=== PATIENT | female | born 1945 | race Caucasian/White ===

== ENCOUNTER 2025-09-05 18:04 | Inpatient (IN) | payer MEDICARE, SELFPAY ==
[2025-09-05] VITALS (12 sets, daily range): BP systolic 143–206; BP diastolic 67–101; PULSE 54–68; RESP 16–35; O2SAT 96–99; BMI 23.0
--- NOTE | 2025-09-05 18:07 | DI.CT.S_ITS ---
PROCEDURE: CT STROKE INDICATIONS: Positive BE-FAST, Stroke symptoms TECHNIQUE: Noncontrast 4.5 mm thick angled axial sections acquired from the foramen magnum to the vertex, with coronal reformats. For radiation dose reduction, the following was used: automated exposure control, adjustment of mA and/or kV according to patient size. COMPARISON: None. FINDINGS: Image quality: Diagnostic. CSF spaces: Basal cisterns are patent. No extra-axial fluid collections. The ventricles are symmetric in size and shape. Brain: No intracranial bleeds or mass effect. There is cerebral volume loss, with resultant ventricular and sulcal prominence. There are periventricular and deep white matter chronic small vessel ischemic changes. There is intracranial internal carotid artery atherosclerosis. Skull and face: Calvarium and visualized facial bones appear intact, without suspicious lesions. Sinuses: Visualized sinuses and mastoids are clear. IMPRESSION: 1. No acute intracranial process. 2. Moderate atrophy and chronic microvascular ischemic changes. The above findings were discussed with Dr. Ava Tran 09/05/2025 at 6:23 p.m. This study fulfills neurological imaging criteria for inclusion or exclusion of acute stroke therapies based on available published neurological guidelines. Dictated by: Carol Sellers M.D. on 09/05/2025 at 18:23 Approved by: Carol Sellers M.D. on 09/05/2025 at 18:24
--- NOTE | 2025-09-05 18:07 | DI.RAD.S_ITS ---
PROCEDURE: XR CHEST 1V INDICATIONS: Possible stroke TECHNIQUE: One view of the chest was acquired. COMPARISON: None. FINDINGS: Surgical changes and devices: None. Lungs and pleura: No focal consolidation.. No pleural effusions or pneumothorax. Mediastinum: Cardiomegaly. Mild perihilar haze. Bones and chest wall: No suspicious bony lesions. Overlying soft tissues appear unremarkable. IMPRESSION: Cardiomegaly with possible early pulmonary edema. Dictated by: Sarabjit Salas M.D. on 09/05/2025 at 18:33 Approved by: Sarabjit Salas M.D. on 09/05/2025 at 18:34
--- NOTE | 2025-09-05 18:07 | DI.CT.S_ITS ---
PROCEDURE: CT ANGIO HEAD AND NECK INDICATIONS: Sudden onset aphasia TECHNIQUE: After the administration of intravenous contrast, 1 mm thick sections acquired from the aortic arch through the [place] of [place]. 3-dimensional etejece-tbtmkftuh-qpgzbtmlrq (MIP) and/or volume rendering reformats were acquired of the central intracranial vasculature and neck separately. For radiation dose reduction, the following was used: automated exposure control, adjustment of mA and/or kV according to patient size. COMPARISON: [facility], CT, CT STROKE, 09/05/2025, 18:16. FINDINGS: Image quality: Diagnostic. Cerebral CT Angiogram: Internal carotid arteries: No acute findings. Intracranial ICA are patent with no significant stenosis. No occlusion. No aneurysm. Anterior cerebral arteries: Unremarkable. No significant stenosis. No occlusion. No aneurysm. Middle cerebral arteries: Unremarkable. No significant stenosis. No occlusion. No aneurysm. Posterior cerebral arteries: Unremarkable. No significant stenosis. No occlusion. No aneurysm. Basilar artery: Unremarkable. No significant stenosis. No occlusion. No aneurysm. Vertebral arteries: Slight right vertebral artery dominance. Dural venous sinuses: Unremarkable given phase of enhancement. Other: Arterial phase appearance of the brain parenchyma is unremarkable. Neck CT Angiogram: Internal carotid arteries: Unremarkable. No significant stenosis. No dissection or occlusion. Common carotid arteries: Unremarkable. No significant stenosis. No dissection or occlusion. External carotid arteries: Unremarkable. No occlusion. Vertebral arteries: Approximate 50% narrowing at the origin of the right vertebral artery. Left vertebral artery origin is at the vertebral arch consistent with congenital variation. Motion is present within this region limiting evaluation. Aortic Arch and Mediastinum: Partially visualized aortic arch unremarkable without evidence of aneurysm. Origins of the great vessels unremarkable. Other: Arterial phase soft tissues of the neck and chest are unremarkable. IMPRESSION: No significant intracranial arterial abnormality is seen. Approximate 50% narrowing at the origin of the right vertebral artery. Any quantitative measurements of stenosis were performed using NASCET criteria. Dictated by: Carol Sellers M.D. on 09/05/2025 at 18:33 Approved by: Carol Sellers M.D. on 09/05/2025 at 18:35
--- NOTE | 2025-09-05 18:08 | ED_ITS ---
HPI - Neuro Symptoms/Deficit General Chief Complaint: Neuro Symptoms/Deficit Stated Complaint: Slurred speech LKW 1750 Time Seen by Provider: 09/05/25 18:07 Source: patient, RN notes reviewed, old records reviewed and other (friend) Mode of arrival: Family Vehicle Limitations: no limitations History of Present Illness HPI Narrative: 80-year-old female with prior skin cancers presents with complaint of slurred speech facial droop and change in mental status that is started a proximally 10 minutes prior to arrival. Patient symptoms has been improving in the department. Patient herself is able to speak with me denies headache, denies vision change, denies any dizziness or vertigo, denies chest pain or shortness of breath. No nausea or vomiting. No other GI or urinary symptoms. She denies any numbness or weakness, she does note some changes to speech but states it seems better. She does note that she had a glass of wine this evening. She denies any numbness or tingling. She states she did not appreciate any changes today. The individual accompanying her who has a friend that she travels with and he also reports he is her power of trade mark attorney states that she has sort of drooped down, developed speech difficulty and slurred speech about 10 minutes prior to arrival. He states it does seem to be improving. Patient does not take any daily medications other than eyedrops. She denies any prior surgeries. She has had some localized skin cancers in the past. She reports a remote allergy to penicillin as a child. Denies tobacco, states has to glasses of wine daily, denies any recreational drugs. Patient had 1 glass of wine this evening. They were on their way to dinner. She is traveling in the area and lives in [place]. Related Data Allergies Allergy/AdvReac Type Severity Reaction Status Date / Time No Allergy Information Allergy Verified 09/05/25 18:08 Available Review of Systems Review of Systems ROS Unobtainable: All systems reviewed & are unremarkable except as noted in HPI and below Exam Narrative Exam Narrative: GEN: well nourished, well appearing female, alert and oriented , patient appears to be in mild distress. HEENT: Atraumatic, pupils are equal round reactive to light, extraocular movements are intact, nares are clear, TMs are clear with no fluid, there is no conjunctival pallor. Throat is clear without any exudates, erythema, tonsillar enlargement or uvular deviation, trace nasal labial droop, HEART: Regular rate and rhythm without murmur, clicks, rubs. Pulses are equal in upper and lower extremities LUNGS:Lungs clear to auscultation, no wheezes, rales, crackles, chest moves symmetrically ABD:bowel sounds normal, soft, non-tender, no guarding, rebound, rigidity, no masses noted, no hepatosplenomegaly :No CVA tenderness MSCL: Non-tender, no muscle atrophy, muscles strength 5/5 upper and lower extremities, full range of motion. NEURO:CN 2-12 intact, sensation normal. finger nose finger test normal, heel jordan test normal. Initial Vital Signs Initial Vital Signs: Vital Signs Pulse Rate 61 09/05/25 18:07 Respiratory Rate 16 09/05/25 18:07 Blood Pressure 206/99 H 09/05/25 18:07 Pulse Oximetry 98 09/05/25 18:07 Oxygen Delivery Method Room Air 09/05/25 18:07 Scores NIH Stroke Scale Level of Conciousness: Alert, keenly responsive Ask month/age: Answers both questions correctly. Open/close eyes, close hand: Performs both tasks correctly Best gaze horizontal: Normal Visual grace: No visual loss Facial palsy: Minor paralysis, flattened nasolabial fold, asymmetry on smiling Left arm drift: Drifts down, not to bed Right arm drift: No drift for full 10 sec Left leg drift: No drift for full 5 sec Right leg drift: No drift for full 5 sec Limb ataxia: Present in one limb Sensory on face/arms/legs: Normal, no sensory loss Best language: No aphasia, normal Dysarthria: Mild to mod,some slurring Extinction or inattention: No abnormality Total NIH Stroke scale score: 4 Course Orders Ordered: ED Orders 09/05/25 18:00 Complete Blood Count AUTO DIFF Stat Comprehensive Metabolic Panel Stat PTT Partial Thromboplastin Joseph Stat Prothrombin Time INR Stat Troponin & CK Cardiac Panel Stat 09/05/25 18:[address] angio head and neck Stat XR chest 1V Stat Urine Drug Screen, Rapid Stat EKG-12 Lead Stat 09/05/25 18:18 ETOH [Ethanol (ETOH)] Stat Ondansetron HCl (Ondansetron 4 Mg/2 Ml Inj) 4 mg IV NOW PRN PRN Reason: Nausea And Vomiting Ondansetron HCl (Ondansetron 4 Mg Odt) 4 mg PO NOW PRN PRN Reason: Nausea And Vomiting Discontinued Medications Aspirin (Aspirin 81 Mg Chew Tab) 324 mg PO NOW ONE Stop: 09/05/25 18:35 Last Admin: 09/05/25 18:43 Dose: 324 mg Documented By: NAVEEN Clopidogrel Bisulfate (Clopidogrel 75 Mg Tablet) 300 mg PO NOW ONE Stop: 09/05/25 20:07 Vital Signs Vital signs: Vital Signs - 8 hr 09/05/25 18:07 09/05/25 18:24 09/05/25 18:30 Pulse Rate 61 58 L 62 Respiratory Rate 16 23 Blood Pressure 206/99 H Pulse Oximetry 98 97 99 Oxygen Delivery Method Room Air 09/05/25 18:33 09/05/25 18:33 Pulse Rate 68 Respiratory Rate 19 Blood Pressure 198/101 H Pulse Oximetry 98 Oxygen Delivery Method MDM - Neuro Symptoms/Deficit Lab Data 09/05/25 18:00 09/05/25 18:00 Labs: Lab Results 09/05/25 09/05/25 Range/Units 18:00 18:18 WBC 5.0 (4.5-11.0) X10^3/uL RBC 4.19 (4.0-5.2) X10^6/uL Hgb 14.0 (12.0-16.0) g/dL Hct 40.9 (36-46) % MCV 97.4 (80-100) fL MCH 33.4 (26-34) PG MCHC 34.3 (30-36) % RDW 13.7 (11.6-14.8) % Plt Count 208 (150-400) X10^3/uL Neut % (Auto) 47.6 L (50-75) % Lymph % (Auto) 27.3 (25-40) % [place] % (Auto) 19.4 H (3-14) % Eos % (Auto) 4.4 H (2-4) % Baso % (Auto) 1.3 (0-2) % Neut # (Auto) 2400 (2877-1779) /uL Lymph # (Auto) 1400 (6079-2099) /uL [place] # (Auto) 1000 H (0-900) /uL Eos # (Auto) 200 (0-450) /uL Baso # (Auto) 100 (0-100) /uL PT 11.1 (9.4-12.5) SECONDS INR 1.0 (0.9-1.3) APTT 28 (25.1-36.5) SECONDS Sodium 138 (137-145) mmol/L Potassium 4.5 (3.4-5.1) mmol/L Chloride 102 (98-107) mmol/L Carbon Dioxide 27 (22-32) mmol/L BUN 22 H (7-17) mg/dL Creatinine 0.97 (0.52-1.04) mg/dL Estimated GFR 59 L (>60) mL/min BUN/Creatinine Ratio 22.7 H (6-22) Glucose 98 (70-99) mg/dL Calcium 9.4 (8.4-10.2) mg/dL Total Bilirubin 0.5 (0.2-1.3) mg/dL AST 25 (14-36) IU/L ALT 19 (<35) IU/L Alkaline Phosphatase 87 (38-126) U/L Total Creatine Kinase 30 (30-135) U/L Troponin I < 0.012 (0.01-0.034) ng/mL Total Protein 7.6 (6.3-8.2) g/dL Albumin 4.7 (3.5-5.0) g/dL Globulin 2.9 (1.7-4.1) g/dL Albumin/Globulin Ratio 1.6 (1.0-2.8) Ethyl Alcohol 34 H (<10) mg/dL Point of Care Testing Glucose POC 88 ECG Data Attestation: I personally reviewed and interpreted this ECG as follows: Prior ECG tracings: not available for review Interpretation: EKG sinus bradycardia, left axis deviation right bundle-branch block rate of 59 MT 168 QRS of 126 QTC of [address]-elevation depression.? No priors for comparison.? MDM Narrative Medical decision making narrative: 80-year-old female presents with code stroke has symptoms consistent, she is within the window for tPA but he is already having some improvement of symptoms per friend at bedside. Blood sugar was 88 here in the department. Patient has a NIH of 4 nursing notes at triage she had significant facial droop and slurred speech what stay appreciate is already improving as well. Head CT shows no acute intracranial process moderate atrophy and chronic microvascular ischemic changes. CT head and neck angio no significant intracranial arterial abnormality seen a proximally 50% narrowing of the origin of the right vertebral artery. Chest x-ray shows cardiomegaly with possible early pulmonary edema. Labs white count of 5 hemoglobin of 14 platelets of 208, EKG sinus bradycardia, left axis deviation right bundle-branch block rate of 59 MT 168 QRS of 126 QTC of [address]-elevation depression. No priors for comparison. Asprin 324mg given. Tele stroke paged. Spoke with tele stroke @ 1945, Dr. Tolentino. Reviewed ABCD score. Recommends dual antiplatelets, plavix 300mg, then asa 81mg and plavix 75mg x 21 days, then 81mg asa daily afterwards. Keep for stroke workup, heart monitor and permissive hypertension. Spoke with Dr. Gonzalez regarding admission for TIA/stroke workup @ 2019 Discharge Plan Departure Patient Disposition: Admitted As Inpatient Clinical Impression: TIA (transient ischemic attack)
[2025-09-05 18:23] LABS: Add Manual Diff / Slide Review NO; Hematocrit 40.9 % (36-46); Hemoglobin 14.0 g/dL (12.0-16.0); Lymphocytes Absolute Auto 1400 /uL (1100-4500); Mean Corpuscular HGB Conc 34.3 % (30-36); Mean Corpuscular Hemoglobin 33.4 PG (26-34); Mean Corpuscular Volume 97.4 fL (80-100); Platelet Count 208 X10^3/uL (150-400)
[2025-09-05 18:30] LABS: INR 1.0 (0.9-1.3); Prothrombin Time 11.1 SECONDS (9.4-12.5)
[2025-09-05 18:33] LABS: PTT Partial Thromboplastin Tim 28 SECONDS (25.1-36.5)
[2025-09-05 18:35] LABS: Alanine Aminotransferase 19 IU/L (<35); Albumin 4.7 g/dL (3.5-5.0); Albumin Globulin Ratio 1.6 (1.0-2.8); Alkaline Phosphatase 87 U/L (38-126); Blood Urea Nitrogen 22 mg/dL (7-17); Calcium 9.4 mg/dL (8.4-10.2); Carbon Dioxide 27 mmol/L (22-32); Chloride 102 mmol/L (98-107); Creatine Kinase 30 U/L (30-135); Estimated Glomerular Filt Rate 59 mL/min (>60); Globulin 2.9 g/dL (1.7-4.1); Glucose 98 mg/dL (70-99); HEMOLYSIS < 15 (0-50); Potassium 4.5 mmol/L (3.4-5.1); Sodium 138 mmol/L (137-145); Total Protein 7.6 g/dL (6.3-8.2)
[2025-09-05] MEDS: ASPIRIN 81 MG CHEW TAB 324 MG PO (18:43)
[2025-09-05 18:46] LABS: Troponin I < 0.012 ng/mL (0.01-0.034)
[2025-09-05 18:46] LABS: Ethanol (ETOH) 34 mg/dL (<10)
--- NOTE | 2025-09-05 18:53 | PC.NURSE ---
Pt presented to ed with stroke like s/s. Brought to room immediately, code stroke called, iv inserted, and taken to CT. LKW 7590. NIH [address] Awake, alert, clear speech.
--- NOTE | 2025-09-05 19:06 | EKG_ITS ---
[facility] [address], [place] [address] Test Date: 2025-09-05 Pat Name: Padmaja Daniel Department: [facility] Room: Gender: Female [place] Through [place]: KIKE : 1945 Requested By: Order Number: [id number] Reading MD: Be Kay MD Measurements Intervals [place] Rate: 59 P: 87 [place]: 168 QRS: -74 QRSD: 156 T: 22 QT: 466 QTc: 461 Interpretive Statements Sinus bradycardia Left axis deviation Right bundle branch block Septal infarct , age undetermined NO PRIOR TRACING Electronically Signed On 09-06-2025 7:20:15 PDT by Be Kay MD
--- NOTE | 2025-09-05 20:23 | P.HP_ITS ---
History of Present Illness History of Present Illness Chief complaint: Slurred speech LKW 1750 Narrative: 80F with no PMH presents with sudden AMS, slurred speech, facial droop 10 min [employer]. Now completely resolved and back to baseline. No prodromal or subsequent symptoms. No prior history. On no meds except eye drops. Initial ED NIHSS [address] brain and CTA head/neck show no significant acute findings. EKG unremarkable. Had one glass of wine prior to incident. Given ASA 324 and Plavix 300 upon recommendations by tele-neurology. [facility] Social History household members: children Smoking Status: Never smoker alcohol intake: current Meds Home Medications and Allergies Home Medications ?Medication ?Instructions ?Recorded ?Confirmed ?Type timolol maleate 0.5 % eye drops 1 drp EYE-BOTH .hs 09/05/25 History zolpidem 10 mg tablet 5 - 10 mg PO ONCE PM 5 09/05/25 History zolpidem 10 mg tablet 5 - 10 mg PO ONCE PM 5 09/05/25 History Allergies Allergy/AdvReac Type Severity Reaction Status Date / Time No Allergy Information Allergy Verified 09/05/25 18:08 Available Review of Systems Review of Systems Narrative: As per HPI. Rest of 10-system review negative. Exam Vital Signs (past 8 hours): - 09/05/25 18:07 09/05/25 18:24 09/05/25 18:30 Pulse Rate 61 58 L 62 Respiratory Rate 16 23 Blood Pressure 206/99 H Pulse Oximetry 98 97 99 Oxygen Delivery Method Room Air 09/05/25 18:33 09/05/25 18:33 Pulse Rate 68 Respiratory Rate 19 Blood Pressure 198/101 H Pulse Oximetry 98 Oxygen Delivery Method Oxygen Delivery Method Room Air Narrative Exam Narrative: Patient was evaluated entirely through 2-way audio/video telemedicine with RN assistance in exam. Physician was not present at beside in person at any time for this evaluation. Consent for telemedicine obtained from patient. Const Other: awake, alert, no acute distress HENMT Other: normocephalic, good eye contact Eyes Other: anicteric Neck Other: FROM Resp Other: CTA-B Cardio Other: RRR GI Other: +BS Skin Other: no rashes Neuro Other: normal speech and movements in bed Extrem Other: no edema BLE Psych Other: normal mood, appropriate affect. Objective Imaging CTA head/neck: Radiologist's impression: No significant intracranial arterial abnormality is seen. Approximate 50% narrowing at the origin of the right vertebral artery. Labs 09/05/25 18:00 09/05/25 18:00 Labs: Laboratory Results - last 24 hr 09/05/25 09/05/25 18:00 18:18 WBC 5.0 RBC 4.19 Hgb 14.0 Hct 40.9 MCV 97.4 MCH 33.4 MCHC 34.3 RDW 13.7 Plt Count 208 Neut % (Auto) 47.6 L Lymph % (Auto) 27.3 [place] % (Auto) 19.4 H Eos % (Auto) 4.4 H Baso % (Auto) 1.3 Neut # (Auto) 2400 Lymph # (Auto) 1400 [place] # (Auto) 1000 H Eos # (Auto) 200 Baso # (Auto) 100 PT 11.1 INR 1.0 APTT 28 Sodium 138 Potassium 4.5 Chloride 102 Carbon Dioxide 27 BUN 22 H Creatinine 0.97 Estimated GFR 59 L BUN/Creatinine Ratio 22.7 H Glucose 98 Calcium 9.4 Total Bilirubin 0.5 AST 25 ALT 19 Alkaline Phosphatase 87 Total Creatine Kinase 30 Troponin I < 0.012 Total Protein 7.6 Albumin 4.7 Globulin 2.9 Albumin/Globulin Ratio 1.6 Ethyl Alcohol 34 H Assessment & Plan Assessment and plan (1) TIA (transient ischemic attack): Status: Acute Assessment & Plan narrative: 80 F with no significant PMH presents with symptoms suggestive of TIA, resolved upon admission to ER. 1. TIA 2. HTN, urgency Plan: 1. Admit to observation, telemetry 2. s/p Plavix 300 + ASA 324 load per neurology 3. continue DAPT x21 days then ASA 4. Bedside swallow screen. If passes, advance diet 5. Neurological checks q4h 6. Permissive HTN to >160 until tomorrow then reduce to goal 7. Follow up outpatient. 8. repeat carotid ultrasound in 1 month for tiny outpouching on carotid -- per neurology Time-Based Coding :: [TOTAL MINUTES] spent with patient and on the chart (including review of chart, obtaining history, exam, reviewing outside data, placing orders, documenting exam and treatment plan, and counseling patient) on [DATE].
[2025-09-05 20:33] LABS: Appearance Urine UA CLEAR; Bilirubin Urine UA NEGATIVE (NEGATIVE); Color Urine UA YELLOW; Glucose Urine UA NEGATIVE (Negative); Ketones Urine UA TRACE (NEGATIVE); Leukocyte Esterase Urine UA 1+ (NEGATIVE); Nitrite Urine UA NEGATIVE (Negative); Occult Blood Urine UA NEGATIVE (Negative); Protein Urine UA NEGATIVE (Negative); Specific Gravity Urine UA 1.010 (1.000-1.035); Urobilinogen Urine UA 0.2 E.U./dL (0.2)
[2025-09-05 20:37] LABS: pH Urine UA 6.0 (4.5-8.0)
[2025-09-05] MEDS: CLOPIDOGREL 75 MG TABLET 300 MG PO (20:39)
[2025-09-05 20:41] LABS: UR Morphine/Opiate cutoff 300 Negative (Negative); Ur Specific Gravity Normal (Normal); Urine MDMA Negative (Negative); Urine Methamphetamines Negative (Negative); Urine Tetrahydrocannabinol Negative (Negative); Urine Tricyclic Antidepressant Negative (Negative)
[2025-09-05 20:47] LABS: Culture Indicated Urine Specimen Cultured
[2025-09-06] VITALS (32 sets, daily range): BP systolic 157–196; BP diastolic 70–97; PULSE 54–64; RESP 9–37; TEMP 36.9; O2SAT 94–99
--- NOTE | 2025-09-06 06:25 | DI.MRI.S_ITS ---
PROCEDURE: MR HEAD/BRAIN WO CON INDICATIONS: TIA TECHNIQUE: Non-contrast axial T1 spin echo, axial T2 fast spin echo, sagittal and axial FLAIR, coronal T2 fast spin echo, axial gradient echo, axial diffusion and ADC through the brain. COMPARISON: [facility], CT, CT STROKE, 09/05/2025, 18:16. [facility], CT, CT ANGIO HEAD AND NECK, 09/05/2025, 18:16. FINDINGS: Image quality: Excellent. CSF spaces: Ventricles appear symmetric in size and shape. Basal cisterns are patent. No extra-axial fluid collections. Brain: There is a 6 mm focus of abnormally increased diffusion-weighted signal within the peripheral white matter the right frontal lobe. Associated dark signal can be seen on the ADC map. There is developing T2 weighted signal seen at this site. No intracranial bleeds or mass effects. There is cerebral volume loss for age. There are periventricular and deep white matter chronic small vessel ischemic changes. Brainstem appears normal. Normal intravascular flow voids are present. Skull and face: Calvarial bone marrow is normal in signal. Orbits are normal. Sinuses: Sinuses and mastoids are clear. IMPRESSION: Small subacute infarction seen within the peripheral white matter of the right frontal lobe. Note is made of age-appropriate brain parenchymal volume loss and chronic small vessel ischemic changes. Dictated by: Gilbert Ariza M.D. on 09/06/2025 at 11:21 Approved by: Gilbert Ariza M.D. on 09/06/2025 at 11:23
[2025-09-06 07:10] LABS: Add Manual Diff / Slide Review NO; Hematocrit 40.5 % (36-46); Hemoglobin 13.9 g/dL (12.0-16.0); Lymphocytes Absolute Auto 600 /uL (1100-4500); Mean Corpuscular HGB Conc 34.2 % (30-36); Mean Corpuscular Hemoglobin 33.2 PG (26-34); Mean Corpuscular Volume 96.9 fL (80-100); Platelet Count 177 X10^3/uL (150-400)
[2025-09-06 07:21] LABS: Blood Urea Nitrogen 18 mg/dL (7-17); Calcium 9.0 mg/dL (8.4-10.2); Carbon Dioxide 25 mmol/L (22-32); Chloride 106 mmol/L (98-107); Estimated Glomerular Filt Rate > 60 mL/min (>60); Glucose 98 mg/dL (70-99); HEMOLYSIS 19 (0-50); Magnesium 2.1 mg/dL (1.6-2.3); Potassium 4.3 mmol/L (3.4-5.1); Sodium 138 mmol/L (137-145)
[2025-09-06 07:51] LABS: TSH w/ Reflex to FT4 1.60 uIU/mL (0.47-4.68)
[2025-09-06] MEDS: CLOPIDOGREL 75 MG TABLET PO (08:44)
[2025-09-06] MEDS: ASPIRIN EC 81 MG TABLET PO (08:44)
--- NOTE | 2025-09-06 08:51 | PC.NURSE ---
pt is aox4. Talking to patients family about update. Pt stated she is trying to get a neurologist in [place]
--- NOTE | 2025-09-06 10:23 | PC.NURSE ---
Pt back from MRI
--- NOTE | 2025-09-06 10:25 | OT.IP.EVAL ---
Current Diagnoses Transient cerebral ischemic attack, unspecified (09/05/25) Occupational Therapy Inpatient Evaluation/Re-Eval M1 PT/OT-IP Prior Functional Status Start: 09/06/25 11:17 Freq: NEEDED Status: Active Protocol: Document 09/06/25 11:17 CCC (Rec: 09/06/25 11:33 [facility] Desktop) Medical Review Prior Functional Status Communication I Mobility and Gait I Activities of Daily I Living and IADL's Prior Functional I Level (Other details ) Social History Household Members significant other Living Arrangements House Number of Floors ( One Floor Floors) Number of Stairs To NO steps Enter/Railing? Home Environment High Toilet,Walk in Shower,Built-In Shower Seat Home Equipment Hand Held Shower,Grab Bars In Shower M2 OT-IP Current Condition Start: 09/06/25 11:17 Freq: Status: Active Protocol: Document 09/06/25 11:17 [facility] (Rec: 09/06/25 11:33 [facility] Desktop) Occupational Therapy Current Condition Current Condition Evaluation Date 09/06/25 Treatment Diagnosis TIA Diagnosis Onset Date 09/05/25 M3 OT- IP Subjective and Pain Start: 09/06/25 11:17 Freq: Status: Active Protocol: Document 09/06/25 11:17 [facility] (Rec: 09/06/25 11:33 [facility] Desktop) OT- Subjective Occupational Therapy Visit Type Type Initial Evaluation Visit Start Time 09:30 Visit Stop Time 10:50 Notes Pt seen from [id number] and [id number], as pt having to get an MRI in between. Occupational Therapy Visit Comments Patient Comments Pt agreed to do cognitive assessments. Patient/Caregiver TO go home Goals OT Pain Assessment Pain When Pain Assessed At Rest Pain Present Pain Present Denied Pain M4 OT- IP ADL's Start: 09/06/25 11:17 Freq: Status: Active Protocol: Document 09/06/25 11:17 CCC (Rec: 09/06/25 11:33 [facility] Desktop) OT ADD-Nfcr-Xnoyklx General Evaluation Self-Feeding Ability Independent OT ADL-Grooming Comments OT Grooming Comments not performed OT ADL-Oral Care Comments Oral Care Comments not performed OT ADL-Dressing General Eval Lower Body Dressing Independent Ability OT ADL-Toileting General Evaluation Toileting Ability Independent OT ADL-Bathing Comments OT Bathing Comments Not performed M5 OT- IP IADL's Start: 09/06/25 11:17 Freq: Status: Active Protocol: Document 09/06/25 11:17 [facility] (Rec: 09/06/25 11:33 [facility] Desktop) OT-Instrumental Activities of Daily Living Home Safety Awareness Awareness of Need Good Awareness for Assistance at Home Ability to Problem Able to Problem Solve Solve Emergency Situations Medication Management Medication No Deficits Identified Management Money Management Money Management No Deficits Identified Meal Preparation Meal Preparation No Deficits Identified 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 Deficits Identified M6 OT- IP Functional Cognition Start: 09/06/25 11:17 Freq: Status: Active Protocol: Document 09/06/25 11:17 [facility] (Rec: 09/06/25 11:33 [facility] Desktop) Cognitive Factors Limiting Selfcare Function Cognitive Ability Level of Alertness Alert Patient Orientation Name,Age,Birthday,Month,Date,Year,Day of Week,Place, Situation Attention Span Capable of Focused Attention,Capable of Sustained Ability Attention Ability to Follow Able to Follow Multi-Step Commands Commands Memory Description No Deficits Noted Safety Awareness No Deficits Noted Problem Solving No deficits Noted Ability Executive Function No Deficits Noted Ability Cognitive Tests SLUMS Pt scored 26/30 on SLUMS and able to recall 3/5 objects after time passed, and not able to draw the hands on the clock correctly after time passed. Pt scored implied mild cognitive disorder. Cognitive Comments Cognitive Assessment Pt scored 77 sec on [place] Making part B which implies Comments normal but not perfect for visual attention, speed of processing, mental flexibility, executive functioning, and task switching. Pt score is above 90th percentile for her age. OT- Vision and Hearing OT- Hearing Assessment OT- Hearing Use of Hearing Aids Assessment OT- Vision Assessment Visual Acuity Glasses For Reading Visual Attentiveness WFL Occular Pursuits WFL Visual Convergence WFL Visual [place] WFL Diplopia Absent M7 OT- IP Mobility and Balance Start: 09/06/25 11:17 Freq: Status: Active Protocol: Document 09/06/25 11:17 [facility] (Rec: 09/06/25 11:33 [facility] Desktop) OT- Bed Mobility Assessment Rolling Level of Assistance Independent Supine to Sit Supine to Sit Assist Independent Sit to Supine Sit to Supine Assist Independent OT-Transfer Assessment Sit to and From Stand Sit to and from Independent Stand Transfers Transfer Ability Independent Comments Mobility Comments Pt is independent for bed mobility and walking in the room without a device. OT- Balance Assessment Sitting Balance and Reactions Dynamic Sitting Normal Balance Ability Standing Balance and Reactions Static Standing Normal Balance Ability Dynamic Standing Good Balance Ability M8 OT- IP Objective Assessments Start: 09/06/25 11:17 Freq: Status: Active Protocol: Document 09/06/25 11:17 [facility] (Rec: 09/06/25 11:33 [facility] Desktop) OT Gross Range of Motion Upper Extremity Range of Motion Assessment Within Functional Limits OT Strength Upper Extremity Strength Assessment Within Functional Limits OT- Coordination Assessment Upper Extremity Finger to Nose Test Within Functional Limits Comments Coordination 9 hole peg test 20 sec right hand and 22 sec left hand- Comments 90th percentile for her age. OT Sensation Assessment Comments Summary Comments Slight increased time for proprioception/kinesthesia for right wrist and hand. M9 OT- IP Assessment and Plan Start: 09/06/25 11:17 Freq: Status: Active Protocol: Document 09/06/25 11:17 [facility] (Rec: 09/06/25 11:33 [facility] Desktop) OT Summary Assessment and Plan Potential Rehabilitation Excellent Potential Analytic Complexity Low at Evaluation Summary Progress Towards Safe For Discharge Goals Assessment Summary Pt states feels pretty much back to her baseline. Pt scored 26/30 on SLUMS and having difficulty to draw the hour hand son the clock and able to recall 3/5 words after time passed. Also note slightly off for right hand /wrist proprioception/kinesthesia. Pt to go home with assist when medically stable. Frequency of Treatment Frequency Of Discharge Treatment Discharge Recommendations OT Discharge Home with Assistance Recommendations Transportation Needs Private Vehicle at Discharge
--- NOTE | 2025-09-06 12:31 | DI.ECHO.S_ITS ---
[facility]+ [facility] : : [address] : : [place] : : [id number] : : Phone: [phone] Echocardiogram Report + + :Name: SRINIVASA ROJAS Study Date: 09/06/2025 Height: 63 in : :[facility] ReadingLocation: Weight: 130 lb : : Gender: Female BSA: 1.6 m2 : :: 1945 Age: 79 yrs BP: 157/77 mmHg: :Reason For Study: Stroke : :Ordering Physician: CAESAR, : :BENOIT Performed By: Julien Garcia : :Referring: BENOIT MAYNARD : + + Interpretation Summary Normal biventricular size and systolic function. LVEF is 60 to 65%. Normal atrial sizes. No more than mild valvular abnormalities noted. Other findings as below. Agitated saline study was negative for [id number] shunt. Procedure: A two-dimensional transthoracic echocardiogram with color flow and Doppler was performed. The study quality was technically adequate. A saline contrast injection was performed to assess for cardiac shunting. There is no prior echocardiogram noted for this patient. The heart rate ranged between 50-55 bpm during the study. Left Ventricle: The left ventricle is normal in size and wall thickness. Left ventricular systolic function is normal. The ejection fraction is estimated to be 60-65%. There are no focal wall motion abnormalities. Normal diastolic function. Right Ventricle: The right ventricle is normal in size and function. Atria: The left atrial size is normal. The right atrium is normal in size. Bubble study was captured on image frame(s) # [id number]. Doppler interrogation and injection of saline echo contrast shows no evidence for an interatrial shunt. Bubble study performed per protocol, negative results with no bubbles visualized in the left atrium or ventricle. Mitral Valve: The mitral valve leaflets appear to open well. There is no mitral valve stenosis. There is mild mitral regurgitation. Aortic Valve: The aortic valve is trileaflet. The aortic valve opens well. There is no aortic valve stenosis. There is trace aortic regurgitation. Tricuspid Valve: The tricuspid valve leaflets are thin and pliable. There is trace tricuspid regurgitation. Pulmonary artery pressures cannot be estimated because of the lack of a measurable TR jet velocity but the IVC suggests a CVP of around 3 mmHg. Pulmonic Valve: The pulmonic valve is not well seen, but is grossly normal. There is trace pulmonic regurgitation. Great Vessels: The aortic root is normal size. The ascending aorta is normal in size. The pulmonary is not well visualized. The IVC is of normal diameter and collapses greater than 50% with a sniff. This suggests a low right atrial pressure of 3 mm Hg. Pericardium/ Pleura There is no pericardial effusion. MMode/2D Measurements & Calculations LVIDd: 4.5 cm LVOT diam: 2.0 cm LVIDs: 2.6 cm Ao root diam: 2.9 cm FS: 41.3 % asc Aorta Diam: 3.3 cm IVSd: 0.98 cm LVPWd: 0.95 cm LV pardo. diameter/BSA (cm/m^2): 2.8 LV sys. diameter/BSA (cm/m^2): 1.6 LA A2 area: 20.6 cm2 RA long axis: 5.1 cm LA A4 area: 16.3 cm2 RA area: 16.0 cm2 LA length (vol): 5.8 cm RA vol: 42.8 ml LA vol: 49.2 ml RA : 26.6 ml/m2 LA vol index: 30.6 ml/m2 IVC diam: 1.7 cm RVD1 (basal): 3.5 cm RVD2 (mid): 2.6 cm TAPSE: 2.2 cm Doppler Measurements & Calculations Ao V2 max: 126.6 cm/sec LVOT Max Regan: 104.0 cm/sec Ao V2 mean: 80.5 cm/sec LV V1 max P.3 mmHg Ao max P.4 mmHg LV V1 VTI: 21.6 cm Ao mean P.1 mmHg URBANO(I,D): 2.7 cm2 Ao V2 VTI: 25.0 cm URBANO(V,D): 2.6 cm2 sev ratio: 0.86 URBANO indexed to BSA (cm^2/m^2): 1.7 MV E max regan: 56.0 cm/sec PA V2 max: 77.0 cm/sec MV A max regan: 72.6 cm/sec PA V2 mean: 56.2 cm/sec MV E/A: 0.77 PA mean P.4 mmHg Med Peak E' Regan: 7.2 cm/sec PA pr(Accel): 32.8 mmHg E/E' med: 7.8 Lat Peak E' Regan: 8.3 cm/sec E/E' lat: 6.7 E/e' average: 7.3 MV dec time: 0.25 sec SV(LVOT): 67.1 ml Reading Physician:01:58 PM
--- NOTE | 2025-09-06 15:21 | P.DS_ITS ---
History of Present Illness History of Present Illness Chief complaint: Slurred speech [id number] Discharge Providers Provider Date of admission: 09/05/25 20:19 Discharge Date: 09/06/25 Primary care physician: Doctor Daryl MD Consults: 09/06/25 06:26 Consult to Occupational Therapy Evaluate & Treat Comment: tia Physician Instructions: Evaluate and treat Discharge provider: Ricco Hahn MD Summary Hospital Course Discharge Diagnosis: 1. 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 She felt she was completely back baseline. She was monitored on telemetry and remained in sinus rhythm throughout her hospitalization. She was mildly hypertensive and permissive hypertension was mild and expected and not treated. She was started on aspirin, clopidogrel 75 mg daily for 21 days, and atorvastatin 40 mg daily. Consideration of outpatient follow-up with heart monitoring is advised. The patient acknowledged understanding, agreement and appreciation of this plan of care, and agreed to call back with any questions or concerns. Status at Discharge Cognitive/behavioral status at discharge: oriented Functional status at discharge: independent ambulation Overall status at discharge: patient is back to baseline Time Spent with Patient Time spent: Greater than 30 minutes Exam Vital Signs (past 8 hours): - 09/06/25 07:30 09/06/25 08:00 09/06/25 08:38 Pulse Rate 56 L 57 L 64 Respiratory Rate 22 36 H Blood Pressure 167/77 H Pulse Oximetry 98 97 09/06/25 08:40 09/06/25 08:41 09/06/25 08:41 Pulse Rate 61 63 Respiratory Rate 19 15 Blood Pressure 167/77 H Pulse Oximetry 94 98 09/06/25 09:00 09/06/25 09:01 09/06/25 09:01 Pulse Rate 61 61 Respiratory Rate 17 18 Blood Pressure 177/70 H Pulse Oximetry 09/06/25 09:30 09/06/25 09:31 09/06/25 09:31 Pulse Rate 60 62 Respiratory Rate 20 37 H Blood Pressure 157/77 H Pulse Oximetry Oxygen Delivery Method Room Air Narrative Exam Narrative: GENERAL: This is a well-nourished, well-developed patient, in no apparent distress. HEAD: Atraumatic. Normocephalic. No temporal or scalp tenderness. EYES: Pupils equal round and reactive. Extraocular motions intact. No scleral icterus. No injection or drainage. ENT: Mucous membranes pink and moist. NECK: Trachea midline. No JVD, bruits or lymphadenopathy. Supple, nontender, no meningeal signs. CARDIOVASCULAR: Regular rate and rhythm without murmurs, gallops, or rubs. RESPIRATORY: Clear to auscultation. GASTROINTESTINAL: Abdomen soft, non-tender, nondistended. EXTREMITIES: No clubbing, cyanosis, or edema. BACK: Nontender without deformity or crepitance. No flank tenderness. NEUROLOGIC: Alert, oriented, speech fluent, full upper and lower motor strength, no focal deficits evident. DERMATOLOGIC: No rashes or skin lesions. Objective ECG Impression: Sinus bradycardia at 59bpm Left axis deviation Right bundle branch block Septal infarct , age undetermined Imaging Echo: Radiologist's impression: Normal biventricular size and systolic function. LVEF is 60 to 65%. Normal atrial sizes. No more than mild valvular abnormalities noted. Other findings as below. Agitated saline study was negative for nofod-yn-yrsh shunt. CT scan - head: Radiologist's impression: 1. No acute intracranial process. 2. Moderate atrophy and chronic microvascular ischemic changes. Chest x-ray: Radiologist's impression: Cardiomegaly with possible early pulmonary edema. Head/neck CTA: Radiologist's impression: No significant intracranial arterial abnormality is seen. Approximate 50% narrowing at the origin of the right vertebral artery. MRI - head: Radiologist's impression: Small subacute infarction seen within the peripheral white matter of the right frontal lobe. Note is made of age-appropriate brain parenchymal volume loss and chronic small vessel ischemic changes. Labs 09/06/25 06:54 09/06/25 06:54 Labs: Laboratory Results - last 24 hr 09/05/25 09/05/25 09/05/25 18:00 18:18 20:20 WBC 5.0 RBC 4.19 Hgb 14.0 Hct 40.9 MCV 97.4 MCH 33.4 MCHC 34.3 RDW 13.7 Plt Count 208 Neut % (Auto) 47.6 L Lymph % (Auto) 27.3 [place] % (Auto) 19.4 H Eos % (Auto) 4.4 H Baso % (Auto) 1.3 Neut # (Auto) 2400 Lymph # (Auto) 1400 [place] # (Auto) 1000 H Eos # (Auto) 200 Baso # (Auto) 100 PT 11.1 INR 1.0 APTT 28 Sodium 138 Potassium 4.5 Chloride 102 Carbon Dioxide 27 BUN 22 H Creatinine 0.97 Estimated GFR 59 L BUN/Creatinine Ratio 22.7 H Glucose 98 Calcium 9.4 Magnesium Total Bilirubin 0.5 AST 25 ALT 19 Alkaline Phosphatase 87 Total Creatine Kinase 30 Troponin I < 0.012 Total Protein 7.6 Albumin 4.7 Globulin 2.9 Albumin/Globulin Ratio 1.6 TSH Urine Color Yellow Urine Appearance Clear Urine pH 6.0 Ur Specific [place] 1.010 Urine Protein Negative Urine Glucose (UA) Negative Urine Ketones Trace H Urine Occult Blood Negative Urine Nitrate Negative Urine Bilirubin Negative Urine Urobilinogen 0.2 Ur Leukocyte Esterase 1+ H Urine RBC None seen Urine WBC 5-10/hpf H Ur Squamous Epith Cells 1-5 /hpf Urine Bacteria Few (2-10) H Ur Culture Indicated? Specimen cultured Vol Urine Centrifuged 10ml (spun) U Opiates 300ng/mL cut Negative Ur Oxycodone Screen Negative Urine Methadone Screen Negative Ur Barbiturates Screen Negative U Tricyclic Antidepress Negative Ur Phencyclidine Scrn Negative Ur Amphetamines Screen Negative U Methamphetamines Scrn Negative Ur MDMA Scrn (Ecstasy) Negative U Benzodiazepines Scrn Negative Urine Cocaine Screen Negative U Marijuana (THC) Screen Negative Urine Specific [place] Ethyl Alcohol 34 H Ur Creatinine 09/05/25 09/06/25 20:20 06:54 WBC 3.7 L RBC 4.18 Hgb 13.9 Hct 40.5 MCV 96.9 MCH 33.2 MCHC 34.2 RDW 13.3 Plt Count 177 Neut % (Auto) 57.8 Lymph % (Auto) 17.0 L [place] % (Auto) 16.0 H Eos % (Auto) 6.6 H Baso % (Auto) 2.6 H Neut # (Auto) 2100 Lymph # (Auto) 600 L [place] # (Auto) 600 Eos # (Auto) 200 Baso # (Auto) 100 PT INR APTT Sodium 138 Potassium 4.3 Chloride 106 Carbon Dioxide 25 BUN 18 H Creatinine 0.85 Estimated GFR > 60 BUN/Creatinine Ratio 21.2 Glucose 98 Calcium 9.0 Magnesium 2.1 Total Bilirubin AST ALT Alkaline Phosphatase Total Creatine Kinase Troponin I Total Protein Albumin Globulin Albumin/Globulin Ratio TSH 1.60 Urine Color Urine Appearance Urine pH Normal Ur Specific [place] Urine Protein Urine Glucose (UA) Urine Ketones Urine Occult Blood Urine Nitrate Urine Bilirubin Urine Urobilinogen Ur Leukocyte Esterase Urine RBC Urine WBC Ur Squamous Epith Cells Urine Bacteria Ur Culture Indicated? Vol Urine Centrifuged U Opiates 300ng/mL cut Ur Oxycodone Screen Urine Methadone Screen Ur Barbiturates Screen U Tricyclic Antidepress Ur Phencyclidine Scrn Ur Amphetamines Screen U Methamphetamines Scrn Ur MDMA Scrn (Ecstasy) U Benzodiazepines Scrn Urine Cocaine Screen U Marijuana (THC) Screen Urine Specific [place] Normal Ethyl Alcohol Ur Creatinine Normal PFSH Social History household members: significant other Smoking Status: Never smoker alcohol intake: current Discharge Plan Discharge Plan Patient Disposition: Home Provider Discharge Comment: Followup with primary care provider in 1 week. If possible, monitor blood pressures and bring a record to your visit. Discharge orders & Medications Prescriptions: New clopidogrel 75 mg tablet 75 mg PO DAILY Qty: 21 0RF aspirin 81 mg Tablet,Delayed Release (Dr/Ec) 81 mg PO DAILY Qty: 30 0RF atorvastatin 40 mg tablet 40 mg PO BEDTIME Qty: 30 0RF Continued zolpidem 10 mg tablet 5 - 10 mg PO ONCE PM timolol maleate 0.5 % drops 1 drp EYE-BOTH .hs Discontinued zolpidem 10 mg tablet 5 - 10 mg PO ONCE PM Follow up/Referrals: Doctor Brito MD [Primary Care Provider, Medical] Visit Report/Discharge Packet Stand Alone Forms: Patient Portal/API, Stroke Signs & Symptoms Discharge Data Primary Care Provider: Doctor Daryl Quality VTE Deep Vein Thrombosis/Pulmonary Embolism Present on Admission: No MIPS - Admit I confirm the patient?s Advance Care Plan is present, Code status is documented, Surrogate decision maker is in patient?s record [If Yes, STOP here]: Yes MIPS - Meds 'Current medications' to include all prescriptions, [id number] products, herbals, cannabis/cannabidiol products, and vitamin/mineral/dietary (nutritional) supplements. I have utilized all available resources to obtain, update, or review the patient?s current medications. [If Yes, STOP here]: Yes MIPS - DC The patient has a history of heart transplant or Left Ventricular Assist Device (LVAD). If yes, STOP here.: No The patient has current or prior documentation of left ventricular ejection fraction (LVEF) less than or equal to 40%, or moderate or severely depressed left ventricular systolic function.: No A. The patient was prescribed or already taking an Angiotensin-Converting Enzyme (OSITO) Inhibitor, or Angiotensin Receptor Denzel (ARB).: No B. The patient was prescribed or already taking a beta-denzel. [If Yes to Both A & B, STOP here]: No Patient not prescribed/taking OSITO or ARB, no reason given.: No Patient not prescribed/taking beta-denzel, no reason given.: No PROFEE Charge Codes Discharge inpatient/observation: [id number]
[2025-09-07 05:10] LABS: Cholesterol,Total 156 mg/dL (100-199); HDL Cholesterol 62 mg/dL (>39); LDL Cholesterol Cal 76 mg/dL (0-99); Triglycerides 96 mg/dL (0-149)
== END 2025-09-06 16:41 | disposition home or self-care (01) | DRG 66 ==
LOC: ED 20:19 → AC 20:20
PROVIDERS: Admitting Provider Internal Medicine; Emergency Provider Internal Medicine; Referring Provider Emergency Medicine; Visit Provider Internal Medicine
DX: I63.9 Cerebral infarction, unspecified (principal); I16.0 Hypertensive urgency; R47.81 Slurred speech; R29.810 Facial weakness; I10 Essential (primary) hypertension; R29.704 NIHSS score 4; R29.700 NIHSS score 0; R00.1 Bradycardia, unspecified; I45.10 Unspecified right bundle-branch block
CPT/HCPCS: 36415; 70450; 70496; 70498; 70551; 71045; 80048; 80053; 80061; 80305; 80320; 81001; 82550; 82962; 83735; 84443; 84484; 85025; 85610; 85730; 87086; 93005; 97129; 97165; 99284; C8929; Q9957; Q9967